=== PATIENT | female | born 1970 | race Caucasian/White ===

== ENCOUNTER 2016-11-16 08:26 | Outpatient (CLI) | payer BC ==
[2016-11-16 10:27] LABS: BASOPHILS # (AUTO) 0.1 /CMM (0.0-0.2); BASOPHILS % (AUTO) 0.9 % (0.0-2.0); DIFF TOTAL % 100 %; EOSINOPHILS # (AUTO) 0.4 /CMM (0.0-0.7); EOSINOPHILS % (AUTO) 3.1 % (0.0-6.0); HEMATOCRIT 44 % (33-45); HEMOGLOBIN 14.8 g/dL (11.5-14.8); LYMPHOCYTES # (AUTO) 3.4 /CMM (0.8-4.8); LYMPHOCYTES % (AUTO) 24.6 % (20.0-44.0); MEAN CORPUSCULAR HEMOGLOBIN 28 PG (26.0-33.0); MEAN CORPUSCULAR HGB CONC 34 g/dl (31.0-36.0); MEAN CORPUSCULAR VOLUME 84 fL (82-100); MONOCYTES # (AUTO) 0.6 /CMM (0.1-1.30); MONOCYTES % (AUTO) 4.2 % (2.0-12.0); NEUTROPHILS # (AUTO) 9.3 /CMM (1.8-8.9); NEUTROPHILS % (AUTO) 67.2 % (43.0-81.0); PLATELET COUNT (AUTO) 264 /CMM (150-450); RED BLOOD CELL COUNT(AUTO) 5.27 MIL/uL (4.0-5.2); WHITE BLOOD COUNT (AUTO) 13.9 K/uL (4.3-11.0)
[2016-11-16 10:46] LABS: CALCIUM, SERUM 9.5 mg/dL (8.5-10.1); CREATININE 0.7 mg/dL (0.6-1.3); POTASSIUM 4.2 mmol/L (3.5-5.1)
[2016-11-16 17:04] LABS: THYROID STIMULATING HORMONE 3.09 uIU/mL (0.358-3.74)
[2016-11-16 21:18] LABS: ALBUMIN 4.2 g/dL (3.4-5.0); BILIRUBIN,TOTAL 0.4 mg/dL (0.2-1.0); TOTAL PROTEIN, SERUM 7.8 g/dL (6.4-8.2)
[2016-11-17 13:14] LABS: *CREATININE RANDOM URINE 126.6 mg/dL (Not Estab.); *MICROALBUMIN/CREATININE RATIO 12.2 mg/g creat (0.0-30.0)
== END 2016-11-16 23:59 | disposition home or self-care (01) ==
LOC: US 08:26
PROVIDERS: ATTEND Family Medicine
DX: E03.9 Hypothyroidism, unspecified (principal); E04.1 Nontoxic single thyroid nodule; R01.1 Cardiac murmur, unspecified; E11.9 Type 2 diabetes mellitus without complications; E55.9 Vitamin D deficiency, unspecified; I51.7 Cardiomegaly; I34.0 Nonrheumatic mitral (valve) insufficiency
CPT/HCPCS: 36415; 71020-TC; 76536-TC; 80053-TC; 80061-TC; 82306; 84439-TC; 84443-TC; 85025-TC; 93307-TC

== ENCOUNTER 2017-02-08 05:35 | Outpatient (CLI) | payer BC ==
[2017-02-08 08:04] LABS: BASOPHILS # (AUTO) 0.2 /CMM (0.0-0.2); BASOPHILS % (AUTO) 1.5 % (0.0-2.0); EOSINOPHILS # (AUTO) 0.6 /CMM (0.0-0.7); EOSINOPHILS % (AUTO) 4.6 % (0.0-6.0); HEMATOCRIT 43 % (33-45); HEMOGLOBIN 14.2 g/dL (11.5-14.8); LYMPHOCYTES # (AUTO) 3.2 /CMM (0.8-4.8); MEAN CORPUSCULAR HEMOGLOBIN 28 PG (26.0-33.0); MEAN CORPUSCULAR HGB CONC 33 g/dl (31.0-36.0); MEAN CORPUSCULAR VOLUME 84 fL (82-100); MONOCYTES # (AUTO) 0.7 /CMM (0.1-1.30); MONOCYTES % (AUTO) 5.7 % (2.0-12.0); NEUTROPHILS # (AUTO) 8.2 /CMM (1.8-8.9); NEUTROPHILS % (AUTO) 63.2 % (43.0-81.0); PLATELET COUNT (AUTO) 243 /CMM (150-450); RDW COEFFICIENT OF VARIATION 12.7 (11.5-15.0); RED BLOOD CELL COUNT(AUTO) 5.11 MIL/uL (4.0-5.2); WHITE BLOOD COUNT (AUTO) 12.9 K/uL (4.3-11.0)
== END 2017-02-08 23:59 | disposition home or self-care (01) ==
LOC: LAB 05:35
PROVIDERS: ATTEND Family Medicine
DX: D72.829 Elevated white blood cell count, unspecified (principal)
CPT/HCPCS: 36415; 85025-TC

== ENCOUNTER 2017-02-18 09:29 | Emergency (ER) | payer BC, OTHER ==
[~2017-02-18] VITALS: Ht 167.6 cm; Wt 83.9 kg
[2017-02-18 09:34] VITALS: BP 141/85
[2017-02-18] MEDS ORDERED: CEPHALEXIN MONOHYDRATE 500 MG CAPSULE PO ONE ×2 (09:44→10:00)
[2017-02-18] MEDS ORDERED: PHENAZOPYRIDINE HCL 200 MG TABLET ONE (09:44)
[2017-02-18] MEDS ORDERED: IBUPROFEN 200 MG TABLET ONE (09:46)
[2017-02-18] MEDS ORDERED: PHENAZOPYRIDINE HCL 200 MG TABLET PO ONE (10:00)
[2017-02-18] MEDS ORDERED: IBUPROFEN 600 MG TABLET PO ONE (10:00)
== END 2017-02-18 09:56 | disposition home or self-care (01) ==
LOC: ER 09:31
DX: N39.0 Urinary tract infection, site not specified (principal); E11.9 Type 2 diabetes mellitus without complications
CPT/HCPCS: 99284; A4606 ×2; Z7610 ×2

== ENCOUNTER 2017-03-22 08:18 | Outpatient (CLI) | payer BC, OTHER ==
[2017-03-22 08:58] LABS: BASOPHILS % (AUTO) 0.4 % (0.0-2.0); EOSINOPHILS # (AUTO) 0.4 /CMM (0.0-0.7); EOSINOPHILS % (AUTO) 3.2 % (0.0-6.0); HEMATOCRIT 46 % (33-45); HEMOGLOBIN 15.4 g/dL (11.5-14.8); LYMPHOCYTES # (AUTO) 2.7 /CMM (0.8-4.8); LYMPHOCYTES % (AUTO) 23.2 % (20.0-44.0); MEAN CORPUSCULAR HEMOGLOBIN 28 PG (26.0-33.0); MEAN CORPUSCULAR HGB CONC 34 g/dl (31.0-36.0); MEAN CORPUSCULAR VOLUME 84 fL (82-100); MONOCYTES # (AUTO) 0.6 /CMM (0.1-1.30); MONOCYTES % (AUTO) 5.1 % (2.0-12.0); NEUTROPHILS # (AUTO) 7.8 /CMM (1.8-8.9); NEUTROPHILS % (AUTO) 68.1 % (43.0-81.0); PLATELET COUNT (AUTO) 235 /CMM (150-450); RDW COEFFICIENT OF VARIATION 12.7 (11.5-15.0); RED BLOOD CELL COUNT(AUTO) 5.41 MIL/uL (4.0-5.2); WHITE BLOOD COUNT (AUTO) 11.5 K/uL (4.3-11.0)
[2017-03-22 09:13] LABS: BILIRUBIN,TOTAL 0.5 mg/dL (0.2-1.0); CREATININE 0.7 mg/dL (0.6-1.3); POTASSIUM 3.5 mmol/L (3.5-5.1)
[2017-03-23 14:22] LABS: *SPE A/G RATIO 1.2 (0.7-1.7); *SPE ALBUMIN 4.1 g/dL (2.9-4.4); *SPE ALPHA-1-GLOBULIN 0.2 g/dL (0.0-0.4); *SPE ALPHA-2-GLOBULIN 0.8 g/dL (0.4-1.0); *SPE BETA GLOBULIN 1.2 g/dL (0.7-1.3); *SPE GLOBULIN, TOTAL 3.3 g/dL (2.2-3.9); *SPE M-SPIKE Not Observed g/dL (Not Observed); *SPE PROTEIN TOTAL 7.4 g/dL (6.0-8.5)
== END 2017-03-22 23:59 | disposition home or self-care (01) ==
LOC: US 08:18
PROVIDERS: ATTEND Family Medicine
DX: D72.829 Elevated white blood cell count, unspecified (principal); K86.89 Other specified diseases of pancreas; R16.0 Hepatomegaly, not elsewhere classified; R06.00 Dyspnea, unspecified
CPT/HCPCS: 36415; 71020-TC; 76700-TC; 80053-TC; 84155; 84165; 85025-TC

== ENCOUNTER 2018-05-09 07:02 | Outpatient (CLI) | payer BC ==
[2018-05-09 07:54] LABS: BASOPHILS % (AUTO) 0.3 % (0.0-2.0); EOSINOPHILS % (AUTO) 2.4 % (0.0-6.0); HEMATOCRIT 43 % (33-45); HEMOGLOBIN 14.4 g/dL (11.5-14.8); LYMPHOCYTES # (AUTO) 2.7 /CMM (0.8-4.8); LYMPHOCYTES % (AUTO) 24.4 % (20.0-44.0); MEAN CORPUSCULAR HEMOGLOBIN 28 PG (26.0-33.0); MEAN CORPUSCULAR HGB CONC 33 g/dl (31.0-36.0); MEAN CORPUSCULAR VOLUME 85 fL (82-100); MONOCYTES # (AUTO) 0.6 /CMM (0.1-1.30); MONOCYTES % (AUTO) 5.7 % (2.0-12.0); NEUTROPHILS # (AUTO) 7.5 /CMM (1.8-8.9); NEUTROPHILS % (AUTO) 67.2 % (43.0-81.0); PLATELET COUNT (AUTO) 255 /CMM (150-450); RDW COEFFICIENT OF VARIATION 12.3 (11.5-15.0); RED BLOOD CELL COUNT(AUTO) 5.09 MIL/uL (4.0-5.2); WHITE BLOOD COUNT (AUTO) 11.2 K/uL (4.3-11.0)
[2018-05-09 07:55] LABS: APPEARANCE,URINE CLEAR (CLEAR); BILIRUBIN,URINE NEGATIVE (NEGATIVE); BLOOD, URINE NEGATIVE Ery/uL (NEGATIVE); COLOR,URINE YELLOW (YELLOW); KETONES,URINE TRACE (NEGATIVE); LEUKOCYTE ESTERASE ,URINE NEGATIVE (NEGATIVE); NITRITE, URINE NEGATIVE (NEGATIVE); PROTEIN,URINE NEGATIVE (NEGATIVE); UGLUCOSE NEGATIVE (NEGATIVE); UROBILINOGEN,URINE 0.2 EU/dL (0.2)
[2018-05-09 08:25] LABS: ALBUMIN 3.7 g/dL (3.4-5.0); BILIRUBIN,TOTAL 0.5 mg/dL (0.2-1.0); CALCIUM, SERUM 9.1 mg/dL (8.5-10.1); CREATININE 0.7 mg/dL (0.6-1.3); POTASSIUM 3.9 mmol/L (3.5-5.1); TOTAL PROTEIN, SERUM 7.4 g/dL (6.4-8.2)
[2018-05-09 08:34] LABS: FREE T4 (FREE THYROXINE) 1.24 ng/dL (0.76-1.46); THYROID STIMULATING HORMONE 2.908 uIU/mL (0.358-3.74)
== END 2018-05-09 23:59 | disposition home or self-care (01) ==
LOC: LAB 07:02
PROVIDERS: ATTEND Family Medicine
DX: Z00.01 Encounter for general adult medical examination with abnormal findings (principal); Z11.59 Encounter for screening for other viral diseases; E11.9 Type 2 diabetes mellitus without complications
CPT/HCPCS: 36415; 80053-TC; 80061-TC; 81000-TC; 82306; 84439-TC; 84443-TC; 85025-TC; 86803; 87086-TC

== ENCOUNTER 2019-10-02 06:16 | Emergency (ER) | payer BC, OTHER ==
[~2019-10-02] VITALS: Ht 175.3 cm; Wt 95.3 kg
--- NOTE | 2019-10-02 06:35 | NUR ---
PT BIBSELF C/O PRODUCTIVE COUGH WITH GREEN SPUTUM X4 DAYS. PT ALSO C/O DIFFICULTY BREATHING, NASAL CONGESTION, SORE THROAT. PT O2 SAT 99% ROOM AIR. PT AAO4. RESPIRATIONS EVEN AND UNLABORED. SKIN WARM AND INTACT. RESPIRATIONS EVEN AND UNLABORED. SKIN WARM AND INTACT. NO ACUTE DISTRESS NOTED AT THIS TIME. WILL CONTINUE TO MONITOR
[2019-10-02 08:26] VITALS: BP 145/71
--- NOTE | 2019-10-02 08:26 | NUR ---
Patient discharged to home in stable condition. Written and verbal after care instructions given. Patient verbalizes understanding of instruction.
== END 2019-10-02 08:26 | disposition home or self-care (01) ==
LOC: ER 06:17
DX: J40 Bronchitis, not specified as acute or chronic (principal); I45.10 Unspecified right bundle-branch block; E11.9 Type 2 diabetes mellitus without complications
CPT/HCPCS: 71045-TC

== ENCOUNTER 2022-10-09 19:48 | Emergency (ER) | payer BC, OTHER ==
[~2022-10-09] VITALS: Ht 172.7 cm; Wt 95.3 kg
[2022-10-09 19:53] VITALS: BP 111/63
[2022-10-09] MEDS ORDERED: IBUPROFEN 600 MG TABLET PO ONE (20:00)
[2022-10-09] MEDS ORDERED: ONDANSETRON 4 MG TAB.RAPDIS SL ONE (20:00)
[2022-10-09] MEDS ORDERED: IBUPROFEN 600 MG TABLET ONE (20:04)
[2022-10-09] MEDS ORDERED: ONDANSETRON 4 MG TAB.RAPDIS ONE (20:04)
--- NOTE | 2022-10-09 20:12 | NUR ---
covid and flu swab collected and sent to lab.
[2022-10-09] MEDS ORDERED: ONDA4TAB11 PO (21:17)
--- NOTE | 2022-10-09 22:31 | NUR ---
Patient discharged to home in stable condition. Written and verbal after care instructions given. Patient verbalizes understanding of instruction.
== END 2022-10-09 22:31 | disposition home or self-care (01) ==
LOC: ER 19:49
DX: U07.1 COVID-19 (principal); R11.2 Nausea with vomiting, unspecified; R51.9 Headache, unspecified; E11.9 Type 2 diabetes mellitus without complications
CPT/HCPCS: 99283; 87426; 87804; U0003; Q0162; C9803

== ENCOUNTER 2022-10-26 07:52 | Outpatient (CLI) | payer BC, OTHER ==
[~2022-10-26 07:52] MED LIST: ONDA4TAB11 PO
[2022-10-26 08:41] LABS: BASOPHILS # (AUTO) 0.1 K/uL (0.0-0.2); BASOPHILS % (AUTO) 0.7 % (0.0-2.0); EOSINOPHILS % (AUTO) 6.2 % (0.0-6.0); HEMATOCRIT 43 % (33-45); HEMOGLOBIN 14.2 g/dL (11.5-14.8); LYMPHOCYTES # (AUTO) 2.7 K/uL (0.8-4.8); LYMPHOCYTES % (AUTO) 27.8 % (20.0-44.0); MEAN CORPUSCULAR HGB CONC 33 g/dl (31.0-36.0); MEAN CORPUSCULAR VOLUME 84 fL (82-100); MONOCYTES # (AUTO) 0.6 K/uL (0.1-1.30); MONOCYTES % (AUTO) 5.9 % (2.0-12.0); NEUTROPHILS # (AUTO) 5.8 K/uL (1.8-8.9); NEUTROPHILS % (AUTO) 59.4 % (43.0-81.0); PLATELET COUNT (AUTO) 289 K/uL (150-450); WHITE BLOOD COUNT (AUTO) 9.8 K/uL (4.3-11.0)
[2022-10-26 09:00] LABS: BILIRUBIN,TOTAL 0.5 mg/dL (0.2-1.0); CALCIUM, SERUM 9.1 mg/dL (8.5-10.1); CREATININE 0.7 mg/dL (0.6-1.3); POTASSIUM 3.8 mmol/L (3.5-5.1); TOTAL PROTEIN, SERUM 7.1 g/dL (6.4-8.2)
[2022-10-26 09:15] LABS: T4 (THYROXINE) 10.4 ug/dL (4.7-13.3); THYROID STIMULATING HORMONE 2.874 uIU/mL (0.358-3.74)
[2022-10-27 08:07] LABS: *ANA ANTI-CENTROMERE B AB <0.2 AI (0.0-0.9); *ANA ANTI-DNA(DS) AB, QN 1 IU/mL (0-9); *ANA ANTI-JO-1 <0.2 AI (0.0-0.9); *ANA ANTICHROMATIN ANTIBODY <0.2 AI (0.0-0.9); *ANA RNP ANTIBODIES <0.2 AI (0.0-0.9); *ANA SJOGREN'S ANTI-SS-A <0.2 AI (0.0-0.9); *ANA SJOGREN'S ANTI-SS-B <0.2 AI (0.0-0.9); *ANAANTI-SCLERODERMA-70 AB <0.2 AI (0.0-0.9); *ANASMITH AB <0.2 AI (0.0-0.9)
== END 2022-10-26 23:59 | disposition home or self-care (01) ==
LOC: US 07:52
PROVIDERS: ATTEND Family Medicine
DX: K76.0 Fatty (change of) liver, not elsewhere classified (principal); R16.0 Hepatomegaly, not elsewhere classified; Z79.899 Other long term (current) drug therapy; R10.9 Unspecified abdominal pain; E11.65 Type 2 diabetes mellitus with hyperglycemia; Z00.01 Encounter for general adult medical examination with abnormal findings; M25.549 Pain in joints of unspecified hand
CPT/HCPCS: 36415; 76700-TC; 80053-TC; 80061-TC; 82306; 82728-TC; 83540-TC; 83550-TC; 84436-TC; 84443-TC; 84481; 85025-TC; 86225; 86235; 86431-TC

== ENCOUNTER 2024-03-10 08:52 | Emergency (ER) | payer BC, OTHER ==
[~2024-03-10] VITALS: Ht 170.2 cm; Wt 90.7 kg
[~2024-03-10 08:52] MED LIST changes: +ATOR10TA PO; +EMPA10TA PO; +FLUT16SP16 BNOSTRILS; +LEVO50TA8 PO; +LISI2.5T2 PO; +METF-442 PO; -ONDA4TAB11 PO
[2024-03-10] MEDS ORDERED: DIAZEPAM 5 MG TABLET ONE (09:21)
[2024-03-10] MEDS ORDERED: ONDANSETRON HCL/PF 4 MG/2 ML VIAL ONE (09:21)
[2024-03-10] MEDS ORDERED: MECLIZINE HCL 12.5 MG TABLET ONE (09:22)
[2024-03-10] MEDS: ONDANSETRON HCL/PF 4 MG/2 ML VIAL IVP ONE (09:28)
[2024-03-10] MEDS: IV NS 0.9% 1,000 ML BAG IV ONE (09:28)
[2024-03-10] MEDS: MECLIZINE HCL 12.5 MG TABLET PO ONE (09:29)
[2024-03-10] MEDS: DIAZEPAM 5 MG TABLET PO ONE (09:30)
[2024-03-10 09:36] LABS: BASOPHILS # (AUTO) 0.1 K/uL (0.0-0.2); BASOPHILS % (AUTO) 0.9 % (0.0-2.0); EOSINOPHILS # (AUTO) 0.7 K/uL (0.0-0.7); EOSINOPHILS % (AUTO) 8.6 % (0.0-6.0); HEMATOCRIT 44 % (33-45); HEMOGLOBIN 14.9 g/dL (11.5-14.8); LYMPHOCYTES # (AUTO) 2.3 K/uL (0.8-4.8); LYMPHOCYTES % (AUTO) 28.3 % (20.0-44.0); MEAN CORPUSCULAR HEMOGLOBIN 28 PG (26.0-33.0); MEAN CORPUSCULAR HGB CONC 34 g/dl (31.0-36.0); MEAN CORPUSCULAR VOLUME 83 fL (82-100); MONOCYTES # (AUTO) 0.5 K/uL (0.1-1.30); MONOCYTES % (AUTO) 6.1 % (2.0-12.0); NEUTROPHILS # (AUTO) 4.5 K/uL (1.8-8.9); NEUTROPHILS % (AUTO) 56.1 % (43.0-81.0); PLATELET COUNT (AUTO) 248 K/uL (150-450); RED BLOOD CELL COUNT(AUTO) 5.32 MIL/uL (4.0-5.2); RED CELL DISTRIBUTION WIDTH 13.5 % (11.5-15.0); WHITE BLOOD COUNT (AUTO) 8.1 K/uL (4.3-11.0)
[2024-03-10 09:49] LABS: CALCIUM, SERUM 9.6 mg/dL (8.5-10.1); CREATININE 0.6 mg/dL (0.6-1.3); POTASSIUM 3.9 mmol/L (3.5-5.1)
[2024-03-10 09:54] LABS: ALBUMIN 3.7 g/dL (3.4-5.0); BILIRUBIN,DIRECT 0.1 mg/dL (0.0-0.2); BILIRUBIN,TOTAL 0.5 mg/dL (0.2-1.0); TOTAL PROTEIN, SERUM 7.1 g/dL (6.4-8.2)
[2024-03-10] MEDS ORDERED: DIAZ5TAB PO (10:37)
[2024-03-10] MEDS ORDERED: MECL-159 PO (10:37)
[2024-03-10 10:43] VITALS: BP 107/67; TEMP 98.2; O2SAT 100
== END 2024-03-10 10:43 | disposition home or self-care (01) ==
LOC: ER 09:18
DX: R42 Dizziness and giddiness (principal); R11.0 Nausea; I10 Essential (primary) hypertension; E11.9 Type 2 diabetes mellitus without complications; Z86.69 Personal history of other diseases of the nervous system and sense organs; Z88.2 Allergy status to sulfonamides; Z88.8 Allergy status to other drugs, medicaments and biological substances
CPT/HCPCS: 99285; 96374; 70450; 96361; 93005; 85025; 80048; 80076; 36415; J8597; J2405; J7030

== ENCOUNTER 2024-09-16 20:08 | Emergency (ER) | payer BC, OTHER ==
[~2024-09-16] VITALS: Ht 167.6 cm; Wt 77.1 kg
[~2024-09-16 20:08] MED LIST changes: +DIAZ5TAB PO; +MECL-159 PO
[2024-09-16 20:10] VITALS: BP 128/74; TEMP 97.8; O2SAT 99
[2024-09-16] MEDS: AZITHROMYCIN 250 MG TABLET PO ONE (20:27)
== END 2024-09-16 22:18 | disposition home or self-care (01) ==
LOC: ER 20:14
DX: Z20.811 Contact with and (suspected) exposure to meningococcus (principal); E11.9 Type 2 diabetes mellitus without complications; Z79.84 Long term (current) use of oral hypoglycemic drugs; Z79.890 Hormone replacement therapy; Z79.899 Other long term (current) drug therapy; Z87.19 Personal history of other diseases of the digestive system; Z88.1 Allergy status to other antibiotic agents; Z88.2 Allergy status to sulfonamides

== ENCOUNTER 2025-04-29 21:48 | Emergency (ER) | payer BC, OTHER ==
[~2025-04-29] VITALS: Ht 170.2 cm; Wt 90.7 kg
[2025-04-29] MEDS: CIPROFLOXACIN HCL 500 MG TABLET PO ONE (01:30)
[2025-04-29 21:54] VITALS: BP 125/80; TEMP 98
[2025-04-30] MEDS ORDERED: CIPROFLOXACIN HCL 500 MG TABLET ONE (01:29)
[2025-04-30 01:30] VITALS: O2SAT 98
[2025-04-30] MEDS: AZITHROMYCIN 250 MG TABLET PO ONE (01:30)
[2025-04-30] MEDS ORDERED: AZITHROMYCIN 250 MG TABLET ONE (01:30)
== END 2025-04-30 01:42 | disposition home or self-care (01) ==
LOC: ER 21:50
DX: Z13.89 Encounter for screening for other disorder (principal); E11.9 Type 2 diabetes mellitus without complications; Z79.84 Long term (current) use of oral hypoglycemic drugs; Z79.890 Hormone replacement therapy; Z79.899 Other long term (current) drug therapy; Z87.19 Personal history of other diseases of the digestive system; Z88.1 Allergy status to other antibiotic agents; Z88.2 Allergy status to sulfonamides